=== PATIENT | male | born 1970 | race Caucasian/White ===

== ENCOUNTER 2017-02-28 08:55 | Emergency (ER) | payer MEDICAID, OTHER ==
[~2017-02-28] VITALS: Ht 175.3 cm; Wt 99.8 kg
[2017-02-28 11:28] VITALS: BP 156/96
[2017-02-28] MEDS ORDERED: LORazepam 2MG/ML-1ML VIAL IV ONE (11:45)
[2017-02-28] MEDS ORDERED: SODIUM CHLORIDE 0.9% 1,000 ML IV ONE (11:45)
[2017-02-28] MEDS ORDERED: THIAMINE INJ 100 MG, MULTIPLE VITAMIN 10 ML, FOLIC ACID 1 MG, MAGNESIUM SULF SDV 50% 8 ... IV SCH ×5 (12:00)
[2017-02-28 12:35] LABS: Basophils # (auto) 0 uL; Basophils % (auto) 0.4 % (0.0-2.0); CONDITION Y; Eosinophils # (auto) 0 uL; Eosinophils % (auto) 0.4 % (0.0-7.0); Hematocrit 52.4 % (41.0-53.0); Hemoglobin 18.1 g/dL (13.5-17.5); Lymphocytes # (auto) 1.4 uL; Lymphocytes % (auto) 28.5 % (10.0-50.0); Mean Corpuscular Hemoglobin 34.5 pg (28.0-32.0); Mean Corpuscular Hgb Conc. 34.5 g/dL (32.0-36.0); Mean Corpuscular Volume 100.1 fL (80.0-100.0); Monocytes # (auto) 0.5 uL; Monocytes % (auto) 10.1 % (0.0-12.0); Neutrophils % (auto) 60.6 % (37.0-80.0); Platelet Count (auto) 210 10^3/uL (140-450); Red Cell Distribution Width 15.3 % (11.6-16.0)
[2017-02-28 13:02] LABS: Albumin 3.7 g/dL (3.4-5.0); BUN/Creatinine Ratio 9.8; Calcium 8.5 mg/dL (8.5-10.1); Potassium 3.6 mmol/L (3.5-5.1)
[2017-02-28 13:05] LABS: Bilirubin, Total 0.9 mg/dL (0.2-1.0); Total Protein 7.4 g/dL (6.4-8.2)
== END 2017-02-28 16:44 | disposition home or self-care (01) ==
LOC: ER 08:55
DX: F10.129 Alcohol abuse with intoxication, unspecified (principal); E86.0 Dehydration; F10.10 Alcohol abuse, uncomplicated; Z88.0 Allergy status to penicillin; Y90.7 Blood alcohol level of 200-239 mg/100 ml
CPT/HCPCS: 36415; 80053; 80320; 85025; 96365; 96366; 96375; 99291; J2060; J3411; J3475; J7030; J7070

== ENCOUNTER 2024-04-25 19:18 | Inpatient (IN) | payer MEDICAID ==
[~2024-04-25] VITALS: Ht 177.8 cm; Wt 83.9 kg
[2024-04-25 19:36] LABS: Basophils # (auto) 0 10 ^3/uL (0-0.2); Basophils % (auto) 0.3 % (0.0-2.0); Eosinophils # (auto) 0.1 10 ^3/uL (0-0.8); Hematocrit 39.3 % (41.0-53.0); Hemoglobin 13.3 g/dL (13.5-17.5); Lymphocytes # (auto) 2.5 10 ^3/uL (0.4-5.4); Lymphocytes % (auto) 33.4 % (10.0-50.0); Mean Corpuscular Hemoglobin 32.9 pg (28.0-32.0); Mean Corpuscular Hgb Conc. 33.8 g/dL (32.0-36.0); Mean Corpuscular Volume 97.2 fL (80.0-100.0); Monocytes # (auto) 0.7 10 ^3/uL (0-1.3); Monocytes % (auto) 9.8 % (0.0-12.0); Neutrophils % (auto) 54.5 % (37.0-80.0); Platelet Count (auto) 279 10^3/uL (140-450); Red Blood Cells 4.04 10^6/uL (4.5-5.90); Red Cell Distribution Width 13.4 % (11.8-14.3); White Blood Cell 7.4 10^3/uL (4.4-10.8)
[2024-04-25 19:56] LABS: Alanine Aminotransferase 35 U/L (7-40); Albumin 4.6 g/dL (3.2-4.8); Alkaline Phosphatase 48 U/L (46-116); Anion Gap 7 (5-15); Aspartate Aminotransferase 30 U/L (13-40); BUN/Creatinine Ratio 25.9 (10.0-20.0); Bilirubin, Total 0.3 mg/dL (0.2-1.0); Blood Urea Nitrogen 30 mg/dL (9-23); Calcium 10.3 mg/dL (8.7-10.4); Carbon Dioxide 26 mmol/L (20-31); Chloride 108 mmol/L (98-107); Glucose 84 mg/dL (74-106); Potassium 4.5 mmol/L (3.5-5.1); Sodium 141 mmol/L (136-145)
[2024-04-25 19:57] LABS: Total Protein 6.9 g/dL (5.7-8.2)
[2024-04-25] MEDS: ASPirin 325 MG TAB PO ONE (20:05)
[2024-04-25] MEDS: NITROGLYCERIN 0.4 MG SL TAB SL ONE (20:06)
[2024-04-25 20:08] LABS: INR 0.97 (0.9-1.15); Partial Thromboplastin Time 27.5 SEC (24.5-34.5); Prothrombin Time 10.3 sec (9.3-11.8)
[2024-04-25] MEDS ORDERED: ONDANSETRON HCL 4 MG/2 ML VIAL IV PRN (20:30)
[2024-04-25] MEDS ORDERED: MORPHINE SULFATE INJ 2 MG/ml SYRG IV PRN (20:30)
[2024-04-25] MEDS ORDERED: NITROGLYCERIN 0.4 MG SL TAB SL PRN (20:30)
[2024-04-25] MEDS ORDERED: ACETAMINOPHEN 325 MG TAB PO PRN (20:30)
[2024-04-25] MEDS ORDERED: DEXTROSE (50%) 50ML SYRG IV PRN (20:45)
[2024-04-25] MEDS: FAMOTIDINE 20 MG TAB PO SCH (20:52)
[2024-04-25] MEDS: ATORVASTATIN 20 MG TAB PO SCH (21:54)
[2024-04-25] MEDS: ACCU-CHEK COMFORT CURVE STRIP VI SCH (21:59)
[2024-04-25] MEDS: InsuLIN REG 1unit/0.01ml Soln (100units/ml) SC SCH (22:00)
[2024-04-25 23:37] VITALS: BP 114/68; PULSE 64; RESP 17; TEMP 97.6; O2SAT 98
[2024-04-26] MEDS: HYDROcodone-ACET 5/325MG TAB PO PRN (00:02)
[2024-04-26 01:00] VITALS: BP 106/61; PULSE 67; RESP 17; TEMP 97.6; O2SAT 96
[2024-04-26 01:02] VITALS: BP 114/68; PULSE 64; PULSE 67; RESP 17; TEMP 97.6; O2SAT 98
[2024-04-26] MEDS ORDERED: ACET500T58 PO (01:46)
[2024-04-26] MEDS ORDERED: IBUP-1456 PO (01:46)
[2024-04-26] MEDS ORDERED: CHRO200C4 PO (01:46)
[2024-04-26] MEDS ORDERED: [UNRECOGNIZED DRUG - CODE] PO (01:46)
[2024-04-26] MEDS ORDERED: ASHW1CAP PO (01:46)
[2024-04-26] MEDS ORDERED: METF-370 PO (01:46)
[2024-04-26] MEDS ORDERED: PEN400T PO (01:46)
[2024-04-26] MEDS ORDERED: [UNRECOGNIZED DRUG - CODE] PO (01:47)
[2024-04-26] MEDS ORDERED: PROBTAB12 OR (01:47)
[2024-04-26 05:00] VITALS: BP 108/62; PULSE 72; RESP 17; TEMP 97.9; O2SAT 96
[2024-04-26 08:00] VITALS: PULSE 73; PULSE 78; RESP 17; O2SAT 96
[2024-04-26 08:04] LABS: Triglycerides 89 mg/dL (< 150)
[2024-04-26 08:05] LABS: LDL Cholesterol 110 mg/dL (< 100)
[2024-04-26 08:06] LABS: Cholesterol 158 mg/dL (< 200); HDL Cholesterol 39 mg/dL (40-59)
[2024-04-26 09:00] VITALS: BP 126/75; PULSE 73; RESP 17; TEMP 98.1; O2SAT 96
[2024-04-26] MEDS ORDERED: FAMOTIDINE 20 MG TAB PO SCH (10:00)
[2024-04-26] MEDS: ENOXAPARIN SOD 40 MG/0.4 ML SYRINGE SC SCH (10:00)
[2024-04-26] MEDS: ASPirin-EC 81 mg tab PO SCH (10:09)
[2024-04-26] MEDS ORDERED: ATOR20TA50 PO (13:48)
[2024-04-26] MEDS ORDERED: PANT40TA57 PO (13:48)
[2024-04-26 14:12] VITALS: BP 126/75; PULSE 73; RESP 17; TEMP 98.1; O2SAT 96
[2024-04-27 09:26] LABS: Hepatitis B Surface Antigen Negative (Negative)
[2024-04-27 09:48] LABS: Hepatitis C Antibody Negative (Negative)
== END 2024-04-26 15:38 | disposition home or self-care (01) | DRG 243 ==
LOC: ER 19:18 → TELE 20:23 → TELE-WESTW 23:13
PROVIDERS: ADMIT Nurse Practitioner Family; ATTEND Nurse Practitioner Family
DX: K21.9 Gastro-esophageal reflux disease without esophagitis (principal); E11.65 Type 2 diabetes mellitus with hyperglycemia; R07.89 Other chest pain; F17.210 Nicotine dependence, cigarettes, uncomplicated; F17.290 Nicotine dependence, other tobacco product, uncomplicated; Z88.0 Allergy status to penicillin; Z79.84 Long term (current) use of oral hypoglycemic drugs; Z79.899 Other long term (current) drug therapy
CPT/HCPCS: 36415; 71045; 80053; 80061; 82962; 83880; 84484; 85025; 85610; 85730; 86803; 87340; 93005; 93306; 99291; G0378

== ENCOUNTER 2024-10-11 06:30 | Emergency (ER) | payer MEDICAID ==
[~2024-10-11] VITALS: Ht 177.8 cm; Wt 87.8 kg
[~2024-10-11 06:30] MED LIST: ACET500T58 PO; ASHW1CAP PO; ATOR20TA50 PO; IBUP-1456 PO; METF-370 PO; PANT40TA57 PO; PEN400T PO; PROBTAB12 OR
[2024-10-11 06:40] VITALS: BP 133/89; RESP 16; TEMP 97.6; O2SAT 96
--- NOTE | 2024-10-11 06:49 | ECG ---
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
[2024-10-11 06:51] VITALS: PULSE 81
--- NOTE | 2024-10-11 06:51 | ED.PDOC ---
HPI Comments 53 y.o male with PMHx of DM, presents to the ED for a chief complaint of substernal chest pain that started 3-4 days ago. Patient reports pain is constant and woke him up from his sleep this morning around 0300. Patient re ports similar pain 5 months ago, was seen at this ED and was admitted to see a press assistant but at the time left against medical advice. Patient reports at that time, pain had subsided up until the past couple of days. Patient has not followed up with PCP either and does mention increased stress factors at home. Patient denies any nausea, vomiting, fever, chills, leg swelling, back pain. Patient denies substance, alcohol or tobacco use. Chief Complaint: Chest Pain Time Seen by MD: 06:43 Primary Care Provider: ELIEZER Reviewed Notes: Nurses Notes, Medications, Allergies Allergies: Coded Allergies: Penicillins (Verified Allergy, Unknown, 02/28/17) Home Meds Active Scripts Pantoprazole Sodium Sesquihydr (Pantoprazole Sodium Dr) 40 Mg Tab, 40 MG PO BID, #60 TAB Prov:RIRI ALVARADO MD 04/26/24 Atorvastatin Calcium (ATORVASTATIN CALCIUM) 20 Mg Tab, 1 TAB PO DAILY, #30 TAB Prov:RIRI ALVARADO MD 04/26/24 Reported Medications Probiotic Product (PROBIOTIC) Tab, 1 OR, TAB 04/26/24 Pentoxifylline (TRENTAL ER TABLET) 400 Mg Tb, 400 MG PO, TAB 04/26/24 Ibuprofen (Ibuprofen) 800 Mg Tab, 800 MG PO BIDPRN PRN for PAIN SCALE 1 THRU 6, MG 04/26/24 Acetaminophen (Acetaminophen) 500 Mg Tab, 500 MG PO PRN for PAIN SCALE 1-3 OR TEMP>100.4, TAB 04/26/24 Withania Somnifera (Ashwagandha) 500 Mg Cap, 900 MG PO DAILY, CAP 04/26/24 Metformin Hydrochloride (Metformin Hcl) 500 Mg Tab, 500 MG PO TID, MG 04/26/24 Information Source: Patient Mode of Arrival: Ambulatory Severity: Moderate Timing: Days Duration: Since onset Location: Substernal Radiation: No Radiation Quality: Sharp Onset: At Rest Cardiac Risk Factors: Diabetes PE Risk Factors: None History of: Similar pain in past Modifying Factors: Nothing Associated Signs and Symptoms: None Past Medical History PAST MEDICAL HISTORY: DM Surgical History: Denies all surgeries Social History Smoker: Cigarettes Alcohol: Denies ETOH Use Drugs: Denies Drug Use Lives In: Home Constitutional: denies: chills, diaphoresis, fatigue, fever, malaise, sweats, weakness, others EENTM: denies: blurred vision, double vision, ear bleeding, ear discharge, ear drainage, ear pain, ear ringing, eye pain, eye redness, hearing loss, mouth pain, mouth swelling, nasal discharge, nose bleeding, nose congestion, nose pain, photophobia, tearing, throat pain, throat swelling, voice changes, others Respiratory: denies: cough, hemoptysis, orthopnea, SOB at rest, shortness of breath, SOB with excertion, stridor, wheezing, others Cardiovascular: reports: chest pain; denies: dizzy spells, diaphoresis, Dyspnea on exertion, edema, irregular heart beat, left arm pain, lightheadedness, palpitations, PND, syncope, others Gastrointestinal: denies: abdomen distended, abdominal pain, blood streaked bowels, constipated, diarrhea, dysphagia, difficulty swallowing, hematemesis, melena, nausea, poor appetite, poor fluid intake, rectal bleeding, rectal pain, vomiting, others Genitourinary: denies: burning, dysuria, flank pain, frequency, hematuria, incontinence, penile discharge, penile sore, pain, testicle pain, testicle swelling, urgency, others Neurological: denies: dizziness, fainting, headache, left sided numbness, left sided weakness, numbness, paresthesia, pre-existing deficit, right sided numbness, right sided weakness, seizure, speech problems, tingling, tremors, weakness, others Musculoskeletal: denies: back pain, gout, joint pain, joint swelling, muscle pain, muscle stiffness, neck pain, others Integumetry: denies: bruises, change in color, change in hair/nails, dryness, laceration, lesions, lumps, rash, wounds, others Allergic/Immunocompromised: denies: Difficulty Healing, Frequent Infections, Hives, Itching, others Hematologic/Lymphatic: denies: anemia, blood clots, easy bleeding, easy bruising, swollen glands, others Endocrine: denies: excessive hunger, excessive sweating, excessive thirst, excessive urination, flushing, intolerance to cold, intolerance to heat, unexplained weight gain, unexplained weight loss, others Psychiatric: denies: anxiety, bipolar disorder, depression, hopeless, panic disorder, schizophrenia, sleepless, suicidal, others All Other Systems: Reviewed and Negative Physical Exam General Appearance: Moderate Distress HEENT: Normal ENT Inspection, Pharynx Normal, TMs Normal Neck: Full Range of Motion, Non-Tender, Normal, Normal Inspection Respiratory: Chest Non-Tender, Lungs Clear, No Accessory Muscle Use, No Respiratory Distress, Normal Breath Sounds Cardiovascular: No Edema, No JVD, No Murmur, No Gallop, Normal Peripheral Pulses, Regular Rate/Rhythm Breast Exam: Deferred Gastrointestinal: No Organomegaly, Non Tender, No Pulsatile Mass, Normal Bowel Sounds, Soft Genitalia: Deferred Pelvic: Deferred Rectal: Deferred Extremities: No calf tenderness, Normal capillary refill, Normal inspection, Normal range of motion, Non-tender, No pedal edema Musculoskeletal : Apperance: Normal Neurologic: Alert, hoop coiler II-XII nml as Tested, No Motor Deficits, Normal Affect, Normal Mood, No Sensory Deficits Cerebellar Function: Normal Reflexes: Normal Skin: Dry, Normal Color, Warm Peripheral Pulses: 3+ Radial (R), 3+ Radial (L) Lymphatic: No Adenopathy EKG EKG : Pulse Rate (adult): 81 Cardiac Rhythm: NSR Was a procedure done? Was a procedure done?: No CP Differential Dx Differential Diagnosis: A-fib, A-Flutter, Angina, Anxiety / Panic Attack, Atrial Dysrhythmia, Electrolyte Disorder, N/A Differential Diagnosis: Angina, Chest Wall Pain, Cholelithiasis, Costochondritis, Esophageal reflux/spasm, Gastritis, Myocardial Infarction, Pericarditis X-Ray, Labs, Meds, VS Vital Signs Date Time Temp Pulse Resp B/P (MAP) Pulse Ox O2 Delivery O2 Flow Rate FiO2 10/11/24 06:51 81 10/11/24 06:40 97.6 76 16 133/89 (104) 96 97.6 10/11/24 06:37 81 Lab Test 10/11/24 06:44 Range/Units White Blood Count Pending Red Blood Count Pending Hemoglobin Pending Hematocrit Pending Mean Corpuscular Volume Pending Mean Corpuscular Hemoglobin Pending Mean Corpuscular Hemoglobin Concent Pending Red Cell Distribution Width Pending Platelet Count Pending Mean Platelet Volume Pending Neutrophils (%) (Auto) Pending Lymphocytes (%) (Auto) Pending Monocytes (%) (Auto) Pending Basophils (%) (Auto) Pending Neutrophils # (Auto) Pending Lymphocytes # (Auto) Pending Monocytes # (Auto) Pending Sodium Level Pending Potassium Level Pending Chloride Level Pending Carbon Dioxide Level Pending Anion Gap Pending Blood Urea Nitrogen Pending Creatinine Pending Glomerular Filtration Rate Calc Pending BUN/Creatinine Ratio Pending Serum Glucose Pending Calcium Level Pending Troponin I High Sensitivity Pending Patient alert. Complaining of chest pain. Vitals stable. Answering questions. EKG reviewed does not show any acute changes. Has been seen here for same condition but left against medical advice recently. Reviewed his previous visit. Was given aspirin. Was given nitro. He does have diabetes. Risk factors for coronary artery disease. Explained to the patient. Continue monitoring Time of 1ST Reevaluation: 07:30 Reevaluation 1ST: Unchanged Patient Education/Counseling: Diagnosis, Treatment, Prognosis Family Education/Counseling: No Family Present Departure 1 Departure Time of Disposition: 07:04 Impression: Primary Impression: Chest pain of unknown etiology Additional Impression: Hyperglycemia Disposition: 09 ADMITTED INPATIENT Admit to: Med Surg Condition: Guarded Critical Care Note Critical Care Time?: No Stability Stability form required: No Heart Score Heart Score: Heart Score Response (Comments) Value History Slightly Suspicious 0 EKG Normal 0 Age 45-64 1 Risk Factors 1 or 2 risk factors 1 Troponin Normal limit 0 Total 2 I personally scribed for KEVIN VAZQUEZ MD ([email or web address]) on 10/11/24 at 06:51. Electronically submitted by Lisa Sheridan ([email or web address]). KEVIN VAZQUEZ MD Oct 11, 2024 06:51
[2024-10-11 06:57] LABS: Basophils # (auto) 0 10 ^3/uL (0-0.2); Basophils % (auto) 0.5 % (0.0-2.0); Eosinophils # (auto) 0.1 10 ^3/uL (0-0.8); Eosinophils % (auto) 2.3 % (0.0-7.0); Hematocrit 45.6 % (41.0-53.0); Hemoglobin 15.7 g/dL (13.5-17.5); Lymphocytes # (auto) 2.6 10 ^3/uL (0.4-5.4); Lymphocytes % (auto) 40.4 % (10.0-50.0); Mean Corpuscular Hemoglobin 31.8 pg (28.0-32.0); Mean Corpuscular Hgb Conc. 34.4 g/dL (32.0-36.0); Mean Corpuscular Volume 92.4 fL (80.0-100.0); Monocytes # (auto) 0.6 10 ^3/uL (0-1.3); Monocytes % (auto) 9.2 % (0.0-12.0); Neutrophils % (auto) 47.6 % (37.0-80.0); Nucleated Red Blood Cells % 0.1 %; Platelet Count (auto) 240 10^3/uL (140-450); Red Blood Cells 4.93 10^6/uL (4.5-5.90); Red Cell Distribution Width 13.7 % (11.8-14.3); White Blood Cell 6.4 10^3/uL (4.4-10.8)
[2024-10-11 07:07] LABS: Potassium 3.7 mmol/L (3.5-5.1); Sodium 137 mmol/L (136-145)
[2024-10-11 07:08] LABS: Anion Gap 10 (5-15)
[2024-10-11 07:09] LABS: Calcium 9.5 mg/dL (8.7-10.4)
[2024-10-11 07:13] LABS: BUN/Creatinine Ratio 6.8 (10.0-20.0); Glucose 81 mg/dL (74-106)
[2024-10-11 07:16] LABS: Blood Urea Nitrogen 7 mg/dL (9-23); Carbon Dioxide 31 mmol/L (20-31); Chloride 96 mmol/L (98-107)
== END 2024-10-11 08:34 | disposition left against medical advice (07) ==
LOC: ER 06:30
DX: R07.89 Other chest pain (principal); E11.65 Type 2 diabetes mellitus with hyperglycemia; F17.210 Nicotine dependence, cigarettes, uncomplicated; Z79.84 Long term (current) use of oral hypoglycemic drugs; Z79.899 Other long term (current) drug therapy; Z88.0 Allergy status to penicillin
CPT/HCPCS: 36415; 80048; 84484; 85025; 93005

== ENCOUNTER 2025-01-24 07:37 | Emergency (ER) | payer MEDICAID ==
[~2025-01-24] VITALS: Ht 177.8 cm; Wt 75.0 kg
[2025-01-24] MEDS ORDERED: CLIN1CAP70 PO (07:56)
[2025-01-24] MEDS ORDERED: LEVO500T91 PO (07:56)
--- NOTE | 2025-01-24 07:57 | ED.PDOC ---
History of Present Illness HPI Comments 54 y/o M, with PMhx of DM presents to the ED for CC of facial swelling. Patient states, he had a dental cleaning done yesterday (01/23/25) and has since, been experiencing right sided facial swelling. Patient denies difficulty swallowing, shortness of breath, fever, or chills. No other symptoms or modifying factors are present at this time. Chief Complaint: Face pain Time Seen by MD: 07:50 Primary Care Provider: Tereso Gupta Reviewed Notes: Nurses Notes, Medications, Allergies Allergies: Coded Allergies: Penicillins (Verified Allergy, Unknown, 02/28/17) Home Meds Active Scripts Levofloxacin Hemihydrate (LEVOFLOXACIN) 500 Mg Tab, 500 MG PO DAILY for 7 Days, MG Prov:KEVIN VAZQUEZ MD 01/24/25 Clindamycin Hcl (Clindamycin Hcl) 300 Mg Cap, 1 CAP PO TID for 7 Days, #21 CAP Prov:KEVIN VAZQUEZ MD 01/24/25 Pantoprazole Sodium Sesquihydr (Pantoprazole Sodium Dr) 40 Mg Tab, 40 MG PO BID, #60 TAB Prov:RIRI ALVARADO MD 04/26/24 Atorvastatin Calcium (ATORVASTATIN CALCIUM) 20 Mg Tab, 1 TAB PO DAILY, #30 TAB Prov:RIRI ALVARADO MD 04/26/24 Reported Medications Probiotic Product (PROBIOTIC) Tab, 1 OR, TAB 04/26/24 Pentoxifylline (TRENTAL ER TABLET) 400 Mg Tb, 400 MG PO, TAB 04/26/24 Ibuprofen (Ibuprofen) 800 Mg Tab, 800 MG PO BIDPRN PRN for PAIN SCALE 1 THRU 6, MG 04/26/24 Acetaminophen (Acetaminophen) 500 Mg Tab, 500 MG PO PRN for PAIN SCALE 1-3 OR TEMP>100.4, TAB 04/26/24 Withania Somnifera (Ashwagandha) 500 Mg Cap, 900 MG PO DAILY, CAP 04/26/24 Metformin Hydrochloride (Metformin Hcl) 500 Mg Tab, 500 MG PO TID, MG 04/26/24 Information Source: Patient Mode of Arrival: Ambulatory Severity: Moderate Timing: Days Duration: Since onset Prehospital treatment: None Past Medical History PAST MEDICAL HISTORY: DM Surgical History: Denies all surgeries Social History Smoker: Cigarettes Alcohol: Denies ETOH Use Drugs: Denies Drug Use Lives In: Home Constitutional: denies: chills, diaphoresis, fatigue, fever, malaise, sweats, weakness, others EENTM: reports: mouth pain; denies: blurred vision, double vision, ear ble eding, ear discharge, ear drainage, ear pain, ear ringing, eye pain, eye redness, hearing loss, mouth swelling, nasal discharge, nose bleeding, nose congestion, nose pain, photophobia, tearing, throat pain, throat swelling, voice changes, others Respiratory: denies: cough, hemoptysis, orthopnea, SOB at rest, shortness of breath, SOB with excertion, stridor, wheezing, others Cardiovascular: denies: chest pain, dizzy spells, diaphoresis, Dyspnea on exertion, edema, irregular heart beat, left arm pain, lightheadedness, palpitations, PND, syncope, others Gastrointestinal: denies: abdomen distended, abdominal pain, blood streaked bowels, constipated, diarrhea, dysphagia, difficulty swallowing, hematemesis, melena, nausea, poor appetite, poor fluid intake, rectal bleeding, rectal pain, vomiting, others Genitourinary: denies: burning, dysuria, flank pain, frequency, hematuria, incontinence, penile discharge, penile sore, pain, testicle pain, testicle swelling, urgency, others Neurological: denies: dizziness, fainting, headache, left sided numbness, left sided weakness, numbness, paresthesia, pre-existing deficit, right sided numbness, right sided weakness, seizure, speech problems, tingling, tremors, weakness, others Musculoskeletal: denies: back pain, gout, joint pain, joint swelling, muscle pain, muscle stiffness, neck pain, others Integumetry: denies: bruises, change in color, change in hair/nails, dryness, laceration, lesions, lumps, rash, wounds, others Allergic/Immunocompromised: denies: Difficulty Healing, Frequent Infections, Hives, Itching, others Hematologic/Lymphatic: denies: anemia, blood clots, easy bleeding, easy bruising, swollen glands, others Endocrine: denies: excessive hunger, excessive sweating, excessive thirst, excessive urination, flushing, intolerance to cold, intolerance to heat, unexplained weight gain, unexplained weight loss, others Psychiatric: denies: anxiety, bipolar disorder, depression, hopeless, panic disorder, schizophrenia, sleepless, suicidal, others All Other Systems: Reviewed and Negative Physical Exam General Appearance: Moderate Distress HEENT: Normal ENT Inspection, Pharynx Normal, TMs Normal Neck: Full Range of Motion, Non-Tender, Normal, Normal Inspection Respiratory: Chest Non-Tender, Lungs Clear, No Accessory Muscle Use, No Respiratory Distress, Normal Breath Sounds Cardiovascular: No Edema, No JVD, No Murmur, No Gallop, Normal Peripheral Pulses, Regular Rate/Rhythm Breast Exam: Deferred Gastrointestinal: No Organomegaly, Non Tender, No Pulsatile Mass, Normal Bowel Sounds, Soft Genitalia: Deferred Pelvic: Deferred Rectal: Deferred Extremities: No calf tenderness, Normal capillary refill, Normal inspection, Normal range of motion, Non-tender, No pedal edema Musculoskeletal : Apperance: Normal Neurologic: Alert, 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 Was a procedure done?: No Differential Dx Considerations may include: mild allergic reaction, dental infection, dental caries X-Ray, Labs, Meds, VS Vital Signs Date Time Temp Pulse Resp B/P (MAP) Pulse Ox O2 Delivery O2 Flow Rate FiO2 01/24/25 07:39 97.8 99 15 99/107 98 97.8 Patient alert. Complaining of right-sided tooth pain. On examination he does have dental caries. Vitals stable. Answering questions. Ambulating. No sign of any distress. Reviewed his previous visit. Was given prescription of Levaquin clindamycin antibiotic. Explained to the patient. Was told to follow up with his primary care physician. Was told to come back if there is any problem. Time of 1ST Reevaluation: 08:20 Reevaluation 1ST: Improved Patient Education/Counseling: Diagnosis, Treatment Family Education/Counseling: No Family Present SEPSIS Sepsis Screen Date sepsis recognized/suspect: Jan 24, 2025 Time Sepsis recognized/suspect: 0742 Recent Procedure: No On Antibiotic Therapy: No Respiratory Rate >20: No Heart Rate >90: No Temp<36 C (96.8 F) or >38.3 C: No SBP <90 or MAP <65 mmHG: No New Acute Mental Status Change: No Is the patient on CPAP, BIPAP,: No Vital Signs Date Time Temp Pulse Resp B/P (MAP) Pulse Ox O2 Delivery O2 Flow Rate FiO2 01/24/25 07:39 97.8 99 15 99/107 98 97.8 Departure 1 Departure Time of Disposition: 07:53 Impression: Primary Impression: Dental caries Disposition: HOME / SELF CARE / HOMELESS Condition: Good e-Prescriptions Levofloxacin Hemihydrate (LEVOFLOXACIN) 500 Mg Tab 500 MG PO DAILY for 7 Days, MG Prov: KEVIN VAZQUEZ MD 01/24/25 Clindamycin Hcl (Clindamycin Hcl) 300 Mg Cap 1 CAP PO TID for 7 Days, #21 CAP Prov: KEVIN VAZQUEZ MD 01/24/25 Discharged With: Self Critical Care Note Critical Care Time?: No Stability Stability form required: No Heart Score Heart Score: Heart Score Response (Comments) Value History N/A 0 EKG N/A 0 Age N/A 0 Risk Factors N/A 0 Troponin N/A 0 Total 0 I personally scribed for KEVIN VAZQUEZ MD ([email or web address]) on 01/24/25 at 07:57. Electronically submitted by Maribel Hussein ([email or web address]). KEVIN VAZQUEZ MD Jan 24, 2025 07:57
[2025-01-24 08:30] VITALS: BP 122/67; PULSE 84; RESP 20; TEMP 98; O2SAT 98
== END 2025-01-24 08:38 | disposition home or self-care (01) ==
LOC: ER 07:37
DX: K02.9 Dental caries, unspecified (principal); F17.210 Nicotine dependence, cigarettes, uncomplicated; E11.9 Type 2 diabetes mellitus without complications; Z88.0 Allergy status to penicillin; Z79.899 Other long term (current) drug therapy